=== PATIENT | male | born 1970 | race Caucasian/White ===

== ENCOUNTER 2018-09-12 14:17 | Emergency (ER) | payer MEDICAID ==
[~2018-09-12] VITALS: Ht 170.2 cm; Wt 68.2 kg
[2018-09-12 15:28] LABS: BASOPHILS % (AUTO) 0.3 % (0.0-2.0); EOSINOPHILS % (AUTO) 0.4 % (1.0-6.0); HEMATOCRIT 27.7 % (41-53); HEMOGLOBIN 8.7 g/dL (13.5-17.5); LYMPHOCYTES # (AUTO) 1.3 K/uL (1.0-4.8); LYMPHOCYTES % (AUTO) 15.9 % (22.0-44.0); MEAN CORPUSCULAR HEMOGLOBIN 23.6 pg (26.0-34.0); MEAN CORPUSCULAR HGB CONC 31.5 G/dL (31.0-37.0); MEAN CORPUSCULAR VOLUME 75 fL (80-100); MONOCYTES # (AUTO) 0.5 K/uL (0.1-1.0); MONOCYTES % (AUTO) 6.1 % (2.0-9.0); NEUTROPHILS # (AUTO) 6.3 K/uL (1.8-7.7); NEUTROPHILS % (AUTO) 77.3 % (40.0-70.0); PLATELET COUNT (AUTO) 239 K/uL (150-450); RED CELL DISTRIBUTION WIDTH 18.6 % (11.5-14.5)
[2018-09-12 15:44] LABS: ANION GAP 7 mmol/L (8-16); CALCIUM, TOTAL 8.1 mg/dL (8.8-10.5); CARBON DIOXIDE 25 mmol/L (22-29); CHLORIDE 104 mmol/L (98-107); CREATININE 1.05 mg/dL (0.60-1.30); GLOMERULAR FILTR. RATE CALC > 60 mL/min (>60); GLUCOSE,RANDOM 270 mg/dL (70-110); POTASSIUM 3.9 mmol/L (3.5-5.1); SODIUM SERUM 136 mmol/L (136-145); UREA NITROGEN, BLOOD 13 mg/dL (7-18)
[2018-09-12 15:50] LABS: ALANINE AMINOTRANSFERASE 11 U/L (12-78); ALBUMIN 1.8 g/dL (3.4-5.0); ALKALINE PHOSPHATASE 88 U/L (46-116); ASPARTATE AMINOTRANSFERASE 23 U/L (15-37); BILIRUBIN,TOTAL 0.3 mg/dL (0.1-1.0); TOTAL PROTEIN, SERUM 6.5 g/dL (6.4-8.2)
[2018-09-12 19:05] VITALS: BP 129/57
== END 2018-09-12 19:26 | disposition home or self-care (01) ==
LOC: EMS 14:19
DX: C44.40 Unspecified malignant neoplasm of skin of scalp and neck (principal); M95.2 Other acquired deformity of head
CPT/HCPCS: 36415; 80053; 82948; 85025; 93005; 99284; G0480